=== PATIENT | female | born 1960 | race Caucasian/White ===

== ENCOUNTER 2016-11-28 10:31 | Outpatient (CLI) | payer OTHER ==
[2016-11-28 12:14] LABS: Hemoglobin A1c 7.1 % (4.0-6.0)
== END 2016-11-28 10:32 | disposition home or self-care (01) ==
LOC: NAV LAB 10:31
PROVIDERS: ATTEND Family Medicine
DX: E11.9 Type 2 diabetes mellitus without complications (principal)
CPT/HCPCS: 83036

== ENCOUNTER 2017-03-02 09:25 | Outpatient (CLI) | payer OTHER ==
[2017-03-02 10:21] LABS: Hemoglobin A1c 6.7 % (4.0-6.0)
== END 2017-03-02 09:26 | disposition home or self-care (01) ==
LOC: NAV LAB 09:25
PROVIDERS: ATTEND Family Medicine
DX: E11.9 Type 2 diabetes mellitus without complications (principal)
CPT/HCPCS: 36415; 83036